=== PATIENT | female | born 1985 | race Caucasian/White ===

== ENCOUNTER 2016-10-30 11:24 | Emergency (ER) | payer OTHER ==
[2016-10-30 11:32] VITALS: BP 102/59; PULSE 102; TEMP 98.1; BMI 24.5
--- NOTE | 2016-10-30 12:29 | PDOC ---
History of Present Illness - General Chief Complaint: Sore Throat Stated Complaint: SORE THROAT Time Seen by Provider: 10/30/16 12:24 History Source: Patient Exam Limitations: No Limitations - History of Present Illness Initial Comments: 10/30/16 12:25 Patient is here with complaints of sore throat pain, fevers, general body aches. States onset was yesterday and has been intermittent. States all of family has been diagnosed with strep throat that was negative on rapid strep but was called a few days later to be tell the culture was positive for strep. Is concerned may have same. 10/30/16 12:26 Timing/Duration: reports: changing over time, getting worse Severity: reports: mild, moderate Associated Symptoms: reports: denies symptoms, chest pain/soreness, cough, dizziness, fever/chills, nasal congestion, sore throat. denies: wheezing Past History - Travel Traveled outside of the country in the last 30 days: No Close contact w/someone who was outside of country & ill: No - Past Medical History Allergies/Adverse Reactions: Allergies Allergy/AdvReac Type Severity Reaction Status Date / Time Penicillins Allergy Mild Hives Verified 10/30/16 11:29 Home Medications: Ambulatory Orders Azithromycin [Zithromax -] 250 mg PO UTDICT #6 tab 10/30/16 Other medical history: DENIES. - Psycho/Social/Smoking Cessation Hx Anxiety: No Suicidal Ideation: No Smoking History: Current every day smoker Number of Cigarettes Smoked Daily: 10 Information on smoking cessation initiated: No Hx Alcohol Use: No Drug/Substance Use Hx: No Substance Use Type: None Respiratory Specific PMHX - Complaint Specific PMHX Bronchitis: No Pneumonia: No Review of Systems - Review of Systems Able to Perform ROS?: Yes Is the patient limited [place] Citizen proficient: Yes Constitutional: Yes: Symptoms Reported, See HPI, Fever, Malaise HEENTM: Yes: See HPI. No: Symptoms Reported Respiratory: Yes: Symptoms reported, See HPI, Cough ABD/GI: No: Symptoms Reported : No: Symptoms Reported Musculoskeletal: Yes: Symptoms Reported, See HPI Integumentary: Yes: Symptoms Reported, See HPI Neurological: Yes: Symptoms reported All Other Systems: Reviewed and Negative *Physical Exam - Vital Signs Last Vital Signs Temp Pulse Resp BP Pulse Ox 98.1 F 102 H 18 102/59 99 10/30/16 11:29 10/30/16 11:29 10/30/16 11:29 10/30/16 11:29 10/30/16 11:29 - Physical Exam General Appearance: Yes: Nourished, Appropriately Dressed, Apparent Distress HEENT: positive: GRACIELA, TMs Normal, Pharynx Normal Neck: positive: Supple, Lymphadenopathy (R), Lymphadenopathy (L) Respiratory/Chest: positive: Lungs Clear, Normal Breath Sounds. negative: Wheezing Gastrointestinal/Abdominal: positive: Normal Bowel Sounds, Soft Musculoskeletal: positive: Normal Inspection Extremity: positive: Normal Capillary Refill, Normal Inspection Integumentary: positive: Dry, Warm, Pale Neurologic: positive: insole rounder II-XII NML intact, Fully Oriented, Alert, Normal Mood/ Affect, Normal Response, Motor Strength 02/11 Progress Note - Progress Note Progress Note: Microbiology reports negative influenza testing, positive strep throat group a. Will treat with Zithromax as patient has penicillin ALLERGY *DC/Admit/Observation/Transfer Diagnosis at time of Disposition: Strep pharyngitis - Discharge Dispostion Disposition: HOME Condition at time of disposition: Stable Admit: No - Prescriptions Prescriptions: Azithromycin [Zithromax -] 250 mg PO UTDICT #6 tab - Patient Instructions Printed Discharge Instructions: DI for Strep Throat Additional Instructions: Rest, drink lots of fluids: Teas, water, soups Eat cold things: Ice cream, ice pops, ice chips Saltwater gargles Steamy showers/seem to face break up mucus Avoid contact with others until fevers and pain resolved Lots of handwashing and good hygiene, this is contagious Tylenol or Motrin for fever and pain Zithromax as directed Followup with private physician in one to 2 days as needed if not improving Return to emergency department for worsened symptoms, fevers, dehydration - Post Discharge Activity Work/School Note: Back to Work
== END 2016-10-30 12:57 | disposition home or self-care (01) ==
LOC: JERFT 11:24
DX: J02.0 Streptococcal pharyngitis (principal); B95.0 Streptococcus, group A, as the cause of diseases classified elsewhere; F17.210 Nicotine dependence, cigarettes, uncomplicated
CPT/HCPCS: 87070; 87430; 87804; 99281-25

== ENCOUNTER 2017-10-12 20:37 | Emergency (ER) | payer SELFPAY ==
[2017-10-12 20:54] VITALS: BP 125/72; PULSE 99; TEMP 99.6; BMI 23.4
--- NOTE | 2017-10-12 20:54 | PDOC ---
Rapid Medical Evaluation Time Seen by Provider: 10/12/17 20:48 Medical Evaluation: Allergies Allergy/AdvReac Type Severity Reaction Status Date / Time Penicillins Allergy Mild Hives Verified 10/30/16 11:29 I have performed a brief in-person evaluation of this patient. The patient presents with a chief complaint of: vomited once today, now with burning pain in upper abdomen and nausea. Pertinent physical exam findings: TTP of epigastric region. Otherwise patient appears well. I have ordered the following: hcg/UA, labs The patient will proceed to the ED for further evaluation.
[2017-10-12 21:10] LABS: BASO % 0.8 % (0-2.0); EOS % 0.3 % (0-4.5); HEMATOCRIT 41.9 % (32.4-45.2); HEMOGLOBIN 14.1 GM/dL (10.7-15.3); LYMPH % 6.2 % (8-40); MCH 29.6 pg (25.7-33.7); MCHC 33.8 g/dl (32.0-36.0); MEAN CELL VOLUME 87.7 fl (80-96); MEAN PLT VOLUME 9.2 fl (7.5-11.1); NEUT % 87.7 % (42.8-82.8); PLATELET COUNT 213 K/MM3 (134-434); RBC 4.77 M/mm3 (3.60-5.2); RDW 13.1 % (11.6-15.6); WHITE BLOOD COUNT 11.8 K/mm3 (4.0-10.0)
[2017-10-12 21:36] LABS: HCG,QUALITATIVE URINE NEGATIVE
[2017-10-12 21:37] LABS: URINE APPEARANCE CLOUDY; URINE BILIRUBIN NEGATIVE (NEGATIVE); URINE BLOOD NEGATIVE (NEGATIVE); URINE COLOR YELLOW; URINE GLUCOSE (UA) NEGATIVE (NEGATIVE); URINE KETONE TRACE (NEGATIVE); URINE NITRITE NEGATIVE (NEGATIVE); URINE PROTEIN NEGATIVE (NEGATIVE); URINE UROBILINOGEN NEGATIVE mg/dL (0.2-1.0)
[2017-10-12 21:38] LABS: URINE LEUK ESTERASE 2+ (NEGATIVE)
[2017-10-12 21:54] LABS: ALBUMIN 4.1 g/dl (3.4-5.0); ALK PHOS 78 U/L (45-117); ANION GAP 7 (8-16); BILIRUBIN,TOTAL 0.7 mg/dL (0.2-1.0); BLOOD UREA NITROGEN 17 mg/dL (7-18); CALCIUM 8.9 mg/dL (8.5-10.1); CHLORIDE 103 mmol/L (98-107); CO2 28 mmol/L (21-32); CREATININE 0.6 mg/dL (0.55-1.02); GLUCOSE,RANDOM 94 mg/dL (74-106); LIPASE 111 U/L (73-393); POTASSIUM 3.8 mmol/L (3.5-5.1); SGOT/AST 14 U/L (15-37); SGPT/ALT 28 U/L (12-78); SODIUM 138 mmol/L (136-145); TOT PROT 7.4 g/dl (6.4-8.2)
[2017-10-12 22:15] LABS: EPI CELLS MANY /HPF (FEW); URINE BACTERIA RARE /hpf (NONE SEEN); URINE MUCUS RARE
[2017-10-12] MEDS ORDERED: ONDANSETRON *ODT* 4 MG TABLET SL ONE (22:32)
[2017-10-12] MEDS ORDERED: RANITIDINE HCL 150 MG/10 ML UNIT-DOSE PO ONE (22:32)
[2017-10-12] MEDS ORDERED: MAG HYDROX/AL HYDROX/SIMETH 30 ML UNIT-DOSE CUP PO ONE (22:32)
[2017-10-12] MEDS ORDERED: LIDOCAINE VISCOUS 2% ORAL/TOP 100 ML BOTTLE MM ONE (22:32)
--- NOTE | 2017-10-12 22:32 | PDOC ---
History of Present Illness - General Chief Complaint: Nausea Stated Complaint: COUGHING Time Seen by Provider: 10/12/17 20:48 History Source: Patient Exam Limitations: No Limitations - History of Present Illness Initial Comments: 10/12/17 22:24 This is a 32-year-old female without significant past medical history of presents to the emergency department today status post 3 episodes of vomiting. One of the episode of vomiting was posttussive. Patient reports diffuse upper abdominal cramping that started today upon waking. Patient states "I think I have a stomach virus" and then states that "it doesn't feel like one." Patient states she's been feeling very tired and unable to tolerate any by mouth's during the day today. Patient continues to feel nauseous. Patient states she has not had a bowel movement 2 days. Past History - Past Medical History Allergies/Adverse Reactions: Allergies Allergy/AdvReac Type Severity Reaction Status Date / Time Penicillins Allergy Mild Hives Verified 10/30/16 11:29 Home Medications: Ambulatory Orders NK [No Known Home Medication] 10/12/17 - Suicide/Smoking/Psychosocial Hx Smoking History: Current every day smoker Have you smoked in the past 12 months: Yes Number of Cigarettes Smoked Daily: 20 Information on smoking cessation initiated: Yes Hx Alcohol Use: No Drug/Substance Use Hx: No Substance Use Type: None Review of Systems - Review of Systems Able to Perform ROS?: Yes Is the patient limited [place] proficient: No Constitutional: No: Symptoms Reported HEENTM: No: Symptoms Reported Respiratory: Yes: See HPI Cardiac (ROS): No: Symptoms Reported ABD/GI: Yes: See HPI : No: Symptoms Reported Musculoskeletal: No: Symptoms Reported Integumentary: No: Symptoms Reported Neurological: No: Symptoms reported Endocrine: No: Symptoms Reported Hematologic/Lymphatic: No: Symptoms Reported *Physical Exam - Vital Signs Last Vital Signs Temp Pulse Resp BP Pulse Ox 99.6 F 99 H 20 125/72 100 10/12/17 20:51 10/12/17 20:51 10/12/17 20:51 10/12/17 20:51 10/12/17 20:51 - Physical Exam General Appearance: Yes: Appropriately Dressed. No: Apparent Distress HEENT: positive: Pharynx Normal Neck: positive: Trachea midline, Supple Respiratory/Chest: positive: Lungs Clear, Normal Breath Sounds. negative: Respiratory Distress, Accessory Muscle Use Cardiovascular: positive: Regular Rhythm, Regular Rate. negative: Murmur Gastrointestinal/Abdominal: positive: Normal Bowel Sounds, Soft. negative: Tender Musculoskeletal: positive: Normal Inspection. negative: CVA Tenderness Extremity: positive: Normal Capillary Refill, Normal Inspection Integumentary: positive: Normal Color, Dry, Warm Neurologic: positive: Fully Oriented, Alert, Normal Mood/Affect, Normal Response , Motor Strength 02/11 ED Treatment Course - LABORATORY CBC & Chemistry Diagram: 10/12/17 20:59 10/12/17 20:59 - ADDITIONAL ORDERS Additional order review: Laboratory Results 10/12/17 10/12/17 21:02 20:59 Sodium 138 Potassium 3.8 Chloride 103 Carbon Dioxide 28 Anion Gap 7 L BUN 17 Creatinine 0.6 Creat Clearance w eGFR > 60 Random Glucose 94 Calcium 8.9 Total Bilirubin 0.7 AST 14 L ALT 28 Alkaline Phosphatase 78 Total Protein 7.4 Albumin 4.1 Lipase 111 Urine Color Yellow Urine Appearance Cloudy Urine pH 7.0 Ur Specific [place] 1.027 Urine Protein Negative Urine Glucose (UA) Negative Urine Ketones Trace H Urine Blood Negative Urine Nitrite Negative Urine Bilirubin Negative Urine Urobilinogen Negative Urine WBC (Auto) 6 Urine RBC (Auto) 8 Ur Epithelial Cells Many Urine Bacteria Rare Urine Mucus Rare Urine HCG, Qual Negative 10/12/17 20:59 RBC 4.77 MCV 87.7 MCHC 33.8 RDW 13.1 MPV 9.2 Neutrophils % 87.7 H Lymphocytes % 6.2 L Monocytes % 5.0 Eosinophils % 0.3 Basophils % 0.8 Medical Decision Making - Medical Decision Making 10/12/17 22:26 A/P: This is a 32-year-old female without significant past medical history of presents to the emergency department today status post 3 episodes of vomiting. One of the episode of vomiting was posttussive. Patient reports diffuse upper abdominal cramping that started today upon waking. Patient states "I think I have a stomach virus" and then states that "it doesn't feel like one." Patient states she's been feeling very tired and unable to tolerate any by mouth's during the day today. Patient continues to feel nauseous. Patient states she has not had a bowel movement 2 days. Lungs clear to auscultation bilaterally. S1 and S2 present no murmur, rub or gallop noted. Abdomen soft nontender nondistended. Normoactive bowel sounds. Diagnosis: Viral gastroenteritis Labs collected in [facility] unremarkable. Subtly elevated white count likely reactive. I'll treat the patient with 30 mL of Maalox, 15 mL of viscous lidocaine, and 50 mg of Zantac, and 4 mg of Zofran ODT. I will reassess patient after all medications have been given. 10/12/17 22:53 Patient states she feels better after being medicated. Still remains slightly nauseous. I will prescribe patient Zofran ODT to be taken every 6 hours as needed for nausea. Patient is agreement with plan. *DC/Admit/Observation/Transfer Diagnosis at time of Disposition: Gastroenteritis - Discharge Dispostion Disposition: HOME Condition at time of disposition: Stable Admit: No - Referrals Referrals: Frantz Woodard MD [Primary Care Provider] - - Patient Instructions Additional Instructions: Take Zofran every 6 hours as needed for nausea. Keep well-hydrated. Eat a bland diet. Start with bananas, rice, applesauce or toast and slowly aerated foods as your able without vomiting. Return to emergency department for worsening fevers, worsening abdominal pain, severe vomiting, severe diarrhea or any other concerns. Thank you very much for choosing us to provide your emergent healthcare needs. - Post Discharge Activity
[2017-10-12] MEDS ORDERED: RANITIDINE HCL 150 MG TABLET (FP) ONE (22:35)
[2017-10-12] MEDS ORDERED: ONDANSETRON *ODT* 4 MG TABLET ONE (22:35)
[2017-10-12] MEDS ORDERED: MAG HYDROX/AL HYDROX/SIMETH 30 ML UNIT-DOSE CUP ONE (22:35)
== END 2017-10-12 22:54 | disposition home or self-care (01) ==
LOC: JERFT 20:37
DX: K52.9 Noninfective gastroenteritis and colitis, unspecified (principal); F17.210 Nicotine dependence, cigarettes, uncomplicated
CPT/HCPCS: 36415; 80053; 81003; 81015; 83690; 84703; 85025; 99281-25

== ENCOUNTER 2018-09-01 19:13 | Emergency (ER) | payer OTHER ==
--- NOTE | 2018-09-01 19:27 | PDOC ---
Rapid Medical Evaluation Time Seen by Provider: 09/01/18 19:20 Medical Evaluation: Allergies Allergy/AdvReac Type Severity Reaction Status Date / Time Penicillins Allergy Mild Hives Verified 10/30/16 11:29 09/01/18 19:22 I have performed a brief in person evaluation of this patient. The patient presents with a chief complaints of: "I'm bleeding down there" since ~0930 am today. +URINARY FREQUENCY,URGENCY,DYSURIA " it feels like something is stuck and after I pee, it feels like something is stuck and it hurts really bad. I see a little clot after I wiped, I see some discharge" " I have 4 babies and I have never gotten a period with them" Neg f/c, flank pain LMP: 08/22 Pertinent physical exam findings:+bladder pressure, neg flank pain on percussion I have ordered the following: cbc/chem/beta/ua/uc The patient will proceed to the ED for further evaluation. DID NOT ORDER TS AND US. I'm waiting to see if the beta is +, if so, then TS and US transvag
[2018-09-01 19:30] VITALS: BMI 24.4
[2018-09-01 19:45] LABS: BASO % 1.1 % (0-2.0); HEMATOCRIT 39.8 % (32.4-45.2); HEMOGLOBIN 14.1 GM/dL (10.7-15.3); LYMPH % 23.4 % (8-40); MCH 31.7 pg (25.7-33.7); MCHC 35.4 g/dl (32.0-36.0); MEAN CELL VOLUME 89.8 fl (80-96); MEAN PLT VOLUME 9.3 fl (7.5-11.1); MONO % 7.2 % (3.8-10.2); NEUT % 67.3 % (42.8-82.8); PLATELET COUNT 283 K/MM3 (134-434); RBC 4.43 M/mm3 (3.60-5.2); RDW 13.5 % (11.6-15.6); WHITE BLOOD COUNT 13.8 K/mm3 (4.0-10.0)
[2018-09-01 20:25] LABS: ALBUMIN 4.5 g/dl (3.4-5.0); ALK PHOS 119 U/L (45-117); ANION GAP 9 MMOL/L (8-16); BILIRUBIN,TOTAL 0.5 mg/dL (0.2-1); BLOOD UREA NITROGEN 19 mg/dL (7-18); CALCIUM 8.8 mg/dL (8.5-10.1); CHLORIDE 103 mmol/L (98-107); CO2 26 mmol/L (21-32); CREATININE 0.8 mg/dL (0.55-1.3); GLUCOSE,RANDOM 87 mg/dL (74-106); SGOT/AST 30 U/L (15-37); SGPT/ALT 32 U/L (13-61); SODIUM 139 mmol/L (136-145); TOT PROT 7.7 g/dl (6.4-8.2)
[2018-09-01 20:38] LABS: URINE APPEARANCE CLOUDY; URINE BILIRUBIN NEGATIVE (<2.0 mg/dL); URINE COLOR YELLOW; URINE GLUCOSE (UA) NEGATIVE (NEGATIVE); URINE KETONE NEGATIVE (NEGATIVE); URINE LEUK ESTERASE 1+ (NEGATIVE); URINE NITRITE NEGATIVE (NEGATIVE); URINE PROTEIN 2+ (NEGATIVE); URINE UROBILINOGEN NEGATIVE mg/dL (0.2-1.0)
--- NOTE | 2018-09-01 20:49 | PDOC ---
Attending Attestation - Resident Resident Name: Zain Galloway - ED Attending Attestation I have performed the following: I have examined & evaluated the patient, The case was reviewed & discussed with the resident, I agree w/resident's findings & plan, Exceptions are as noted - Medical Decision Making 09/01/18 20:49 I, Dr. Maggie Sears, DO, attest that this document has been prepared under my direction and personally reviewed by me in its entirety. I further attest, that it accurately reflects all work, treatment, procedures and medical decision -making performed by me. 09/01/18 21:56 a/p: 32yo female with urinary freq, urgency, and blood -pt with symptoms today -no f/c -no abd pain, no flank pain, no f/c -will send ua, labs, pelvic exam 09/01/18 21:56 discharge on pelvic exam - will send culture +ua will need abx 09/01/18 21:57 will give [facility] for follow up cultures pending <Maggie Sears - Last Filed: 09/01/18 21:56> - HPI HPI: 09/01/18 22:58 The patient is a 32 year old female, with a significant past medical history of , who presents to the emergency department with, vaginal bleeding, dysuria, hematuria, and urinary frequency. She denies recent abdominal pain, nausea, or vomiting. Allergies: Penicillins. - Physicial Exam PE: 09/01/18 22:58 Constitutional: Awake, alert, oriented. No acute distress. Head: Normocephalic. Atraumatic Eyes: PERRL. EOMI. Conjunctivae are not pale. ENT: Mucous membranes are moist and intact. Posterior pharynx without exudates or erythema. Uvula midline. Neck: Supple. Full ROM. No lymphadenopathy. Cardiovascular: Regular rate. Regular rhythm. S1, S2 regular. Distal pulses are 2+ and symmetric. Pulmonary/Chest: No evidence of respiratory distress. Clear to auscultation bilaterally No wheezing, rales or rhonchi. Abdominal: Soft and non-distended. There is no tenderness. No rebound, guarding or rigidity. No organomegaly. No palpable masses. Good bowel sounds. Back: No CVA tenderness. Musculoskeletal: No edema. No cyanosis. No clubbing. Full range of motion in all extremities. No calf tenderness. Radial/pedal pulses are intact and 2+ bilaterally Skin: Skin is warm and dry. No petechiae. No purpura. Neurological: Alert and oriented to person, place, and time. Cranial nerves II -XII are grossly intact. Normal speech. Strength is grossly symmetric. No sensory deficits. Psychiatric: Good eye contact. Normal interaction, affect and behavior. <Vee Tang - Last Filed: 09/01/18 22:59> Attestations - Attestations 09/01/18 22:59 Documentation prepared by Vee Tang, acting as medical equipment technician for Maggie Sears DO. <Vee Tang - Last Filed: 09/01/18 22:59>
[2018-09-01 20:58] LABS: EPI CELLS RARE /HPF (FEW); URINE BACTERIA FEW /hpf (NONE SEEN); URINE MUCUS RARE
[2018-09-01] MEDS ORDERED: levoFLOXacin 750 MG TABLET PO ONE (21:31)
--- NOTE | 2018-09-01 21:44 | PDOC ---
History of Present Illness <Maggie Sears - Last Filed: 09/01/18 21:57> - General History Source: Patient Exam Limitations: No Limitations - History of Present Illness Initial Comments: 09/01/18 21:44 32 yo F with no pmhx presenting to the ED with vaginal bleeding with associative dysuria, hematuria, and increased urinary frequency. <Zain Galloway - Last Filed: 09/04/18 14:06> - General Chief Complaint: Vaginal Bleeding Stated Complaint: EVALUATION Time Seen by Provider: 09/01/18 19:20 Past History <Maggie Sears - Last Filed: 09/01/18 21:57> - Past Medical History Asthma: No Cancer: No Cardiac Disorders: No CVA: No COPD: No CHF: No DVT: No Dementia: No Diabetes: No - Surgical History Cardiac Surgery: No Cholecystectomy: No Gastric Stapling: No - Suicide/Smoking/Psychosocial Hx Smoking History: Current every day smoker Have you smoked in the past 12 months: Yes Number of Cigarettes Smoked Daily: 20 Information on smoking cessation initiated: Yes 'Breaking Loose' booklet given: 09/01/18 Hx Alcohol Use: Yes Drug/Substance Use Hx: No Substance Use Type: Alcohol <Zain Galloway - Last Filed: 09/04/18 14:06> - Past Medical History Allergies/Adverse Reactions: Allergies Allergy/AdvReac Type Severity Reaction Status Date / Time Penicillins Allergy Mild Hives Verified 09/01/18 22:09 Home Medications: Ambulatory Orders NK [No Known Home Medication] 09/01/18 Review of Systems - Review of Systems Able to Perform ROS?: Yes Is the patient limited [place] proficient: No <Zain Galloway - Last Filed: 09/04/18 14:06> *Physical Exam - Vital Signs Last Vital Signs Temp Pulse Resp BP Pulse Ox 97.6 F 93 H 20 118/64 99 09/01/18 19:22 09/01/18 19:22 09/01/18 19:22 09/01/18 19:22 09/01/18 19:22 <Maggie Sears - Last Filed: 09/01/18 21:57> - Vital Signs Last Vital Signs Temp Pulse Resp BP Pulse Ox 97.6 F 93 H 20 118/64 99 09/01/18 19:22 09/01/18 19:22 09/01/18 19:22 09/01/18 19:22 09/01/18 19:22 - Physical Exam General Appearance: Yes: Nourished, Appropriately Dressed. No: Apparent Distress HEENT: positive: EOMI, GRACIELA, Normal Voice, Pharynx Normal, Hearing Grossly Normal. negative: Scleral Icterus (R), Scleral Icterus (L), Pharyngeal Erythema , Tonsillar Exudate, Tonsillar Erythema Neck: positive: Trachea midline. negative: Lymphadenopathy (R), Lymphadenopathy (L) Respiratory/Chest: positive: Lungs Clear, Normal Breath Sounds. negative: Chest Tender, Respiratory Distress, Accessory Muscle Use Cardiovascular: positive: Regular Rhythm, Regular Rate, S1, S2. negative: Systolic Murmur Female Pelvic Exam: positive: normal external exam, cervical os closed, CMT, discharge (purulent yellow/green). negative: adnexal tenderness Gastrointestinal/Abdominal: positive: Normal Bowel Sounds, Tender (suprapubic region), Flat, Soft. negative: Protuberent, Distended Lymphatic: negative: Adenopathy Musculoskeletal: positive: Normal Inspection. negative: CVA Tenderness Extremity: positive: Normal Capillary Refill, Normal Inspection, Normal Range of Motion. negative: Tender, Swelling, Calf Tenderness Integumentary: positive: Normal Color, Dry. negative: Rash, Swelling Neurologic: positive: engineering manager electronics II-XII NML intact, Fully Oriented, Alert, Normal Mood/ Affect, Normal Response, Motor Strength 5/5. negative: Sensory Deficit <Zain Galloway - Last Filed: 09/04/18 14:06> ED Treatment Course - LABORATORY CBC & Chemistry Diagram: 09/01/18 19:36 09/01/18 19:36 - ADDITIONAL ORDERS Additional order review: Laboratory Results 09/01/18 09/01/18 20:26 19:36 Sodium 139 Potassium 4.0 Chloride 103 Carbon Dioxide 26 Anion Gap 9 BUN 19 H Creatinine 0.8 Creat Clearance w eGFR > 60 Random Glucose 87 Calcium 8.8 Total Bilirubin 0.5 AST 30 ALT 32 Alkaline Phosphatase 119 H Total Protein 7.7 Albumin 4.5 Beta HCG, Quant < 1.0 Urine Color Yellow Urine Appearance Cloudy Urine pH 6.0 Ur Specific [place] 1.026 Urine Protein 2+ H Urine Glucose (UA) Negative Urine Ketones Negative Urine Blood 3+ H Urine Nitrite Negative Urine Bilirubin Negative Urine Urobilinogen Negative Ur Leukocyte Esterase 1+ H Urine WBC (Auto) 188 Urine RBC (Auto) 1419 Ur Epithelial Cells Rare Urine Bacteria Few Urine Mucus Rare 09/01/18 19:36 RBC 4.43 MCV 89.8 MCHC 35.4 RDW 13.5 MPV 9.3 Neutrophils % 67.3 D Lymphocytes % 23.4 D Monocytes % 7.2 Eosinophils % 1.0 D Basophils % 1.1 <Maggie Sears - Last Filed: 09/01/18 21:57> - LABORATORY CBC & Chemistry Diagram: 09/01/18 19:36 09/01/18 19:36 - ADDITIONAL ORDERS Additional order review: Laboratory Results 09/01/18 09/01/18 20:26 19:36 Sodium 139 Potassium 4.0 Chloride 103 Carbon Dioxide 26 Anion Gap 9 BUN 19 H Creatinine 0.8 Creat Clearance w eGFR > 60 Random Glucose 87 Calcium 8.8 Total Bilirubin 0.5 AST 30 ALT 32 Alkaline Phosphatase 119 H Total Protein 7.7 Albumin 4.5 Beta HCG, Quant < 1.0 Urine Color Yellow Urine Appearance Cloudy Urine pH 6.0 Ur Specific [place] 1.026 Urine Protein 2+ H Urine Glucose (UA) Negative Urine Ketones Negative Urine Blood 3+ H Urine Nitrite Negative Urine Bilirubin Negative Urine Urobilinogen Negative Ur Leukocyte Esterase 1+ H Urine WBC (Auto) 188 Urine RBC (Auto) 1419 Ur Epithelial Cells Rare Urine Bacteria Few Urine Mucus Rare 09/01/18 19:36 RBC 4.43 MCV 89.8 MCHC 35.4 RDW 13.5 MPV 9.3 Neutrophils % 67.3 D Lymphocytes % 23.4 D Monocytes % 7.2 Eosinophils % 1.0 D Basophils % 1.1 <Zain Galloway - Last Filed: 09/04/18 14:06> *DC/Admit/Observation/Transfer - Discharge Dispostion Decision to Admit order: No <Maggie Sears - Last Filed: 09/01/18 21:57> - Discharge Dispostion Decision to Admit order: No <Zian Galloway - Last Filed: 09/04/18 14:06> Diagnosis at time of Disposition: UTI (urinary tract infection) Qualifiers: Urinary tract infection type: site unspecified Hematuria presence: without hematuria Qualified Code(s): N39.0 - Urinary tract infection, site not specified - Discharge Dispostion Disposition: HOME Condition at time of disposition: Stable - Referrals Referrals: [facility] [Provider Group] Wilson Kim MD [Staff Physician] - - Patient Instructions Printed Discharge Instructions: DI for Urinary Tract Infection (UTI) Additional Instructions: You were seen in the emergency department for your vaginal bleeding and painful urinations. You were given an antibiotic in our emergency department (levaquin) and have been prescribed this to your pharmacy. Please take it as directed. We took cultures from the urine and cervix and the results will be relayed to you once the cultures result. Please return to the emergency department if you develop worsening symptoms or new concerning symptoms such as fevers/chills, SOB , chest pain, nausea/vomiting, and abdominal pain. Please follow up with your primary care medical doctor or the one we referred you to in your packet within 48-72 hours after discharge. Thank you
[2018-09-01 22:14] VITALS: BP 110/70; PULSE 88; TEMP 97.8
== END 2018-09-01 22:23 | disposition home or self-care (01) ==
LOC: JER 19:13
DX: N39.0 Urinary tract infection, site not specified (principal); N93.9 Abnormal uterine and vaginal bleeding, unspecified
CPT/HCPCS: 36415; 80053; 81003; 81015; 84702; 85025; 87081; 87086; 87186; 99282-25

== ENCOUNTER 2021-05-08 06:02 | Emergency (ER) | payer OTHER ==
[2021-05-08 06:30] VITALS: BMI 33.2
[2021-05-08] MEDS ORDERED: SODIUM CHLORIDE 1,000 ML IV STA (07:35)
[2021-05-08] MEDS ORDERED: ACETAMINOPHEN 1000 MG/100 ML VIAL IVPB ONE (07:35)
[2021-05-08] MEDS ORDERED: ACETAMINOPHEN INJECTION 100 ML IVPB ONE (07:43)
[2021-05-08 08:47] LABS: BASO % 1.1 % (0-2.0); EOS % 0.3 % (0-4.5); HEMATOCRIT 39.8 % (32.4-45.2); HEMOGLOBIN 13.7 GM/dL (10.7-15.3); LYMPH % 34.5 % (8-40); MCH 30.6 pg (25.7-33.7); MCHC 34.4 g/dl (32.0-36.0); MEAN CELL VOLUME 88.8 fl (80-96); MEAN PLT VOLUME 9.3 fl (7.5-11.1); MONO % 6.5 % (3.8-10.2); NEUT % 57.6 % (42.8-82.8); PLATELET COUNT 305 10^3/uL (134-434); RBC 4.49 M/mm3 (3.60-5.2); RDW 13.3 % (11.6-15.6); WHITE BLOOD COUNT 10.1 K/mm3 (4.0-10.0)
[2021-05-08] MEDS ORDERED: METOCLOPRAMIDE HCL INJECTION 10 MG/2 ML VIAL IVPB ONE (08:55)
[2021-05-08] MEDS ORDERED: METOCLOPRAMIDE HCL INJECTION 10 MG/2 ML VIAL ONE (09:05)
[2021-05-08 09:13] LABS: ALBUMIN 4.4 g/dl (3.4-5.0); BLOOD UREA NITROGEN 8.1 mg/dL (7-18); CALCIUM 8.9 mg/dL (8.5-10.1)
[2021-05-08 09:17] LABS: CREATININE 0.5 mg/dL (0.55-1.3)
[2021-05-08 09:18] LABS: BILIRUBIN,TOTAL 0.3 mg/dL (0.2-1)
[2021-05-08 10:38] VITALS: BP 112/57; PULSE 73; TEMP 97.2
== END 2021-05-08 10:38 | disposition home or self-care (01) ==
LOC: JER 06:02
PROC: 3E0333Z Introduction of Anti-inflammatory into Peripheral Vein, Percutaneous Approach (ICD-10-PCS; principal; 2021-05-08)
PROC: 3E033GC Introduction of Other Therapeutic Substance into Peripheral Vein, Percutaneous Approach (ICD-10-PCS; 2021-05-08)
PROC: 3E0337Z Introduction of Electrolytic and Water Balance Substance into Peripheral Vein, Percutaneous Approach (ICD-10-PCS; 2021-05-08)
DX: R50.9 Fever, unspecified (principal); R51.9 Headache, unspecified; R05 Cough
CPT/HCPCS: 36415; 71046-TC-FY; 80053; 85025; 96374; 96375; 99284-25; C9803; J0131; U0003; U0005

== ENCOUNTER 2023-02-26 10:37 | Emergency (ER) | payer OTHER ==
[2023-02-26 10:46] VITALS: BP 104/67; PULSE 81; RESP 18; TEMP 97.7; BMI 27.3
[2023-02-26] MEDS ORDERED: ACETAMINOPHEN 325 MG TABLET (FP) ONE (14:37)
[2023-02-26] MEDS ORDERED: ACETAMINOPHEN 325 MG TABLET (FP) PO ONE (14:39)
[2023-02-26] MEDS ORDERED: SODIUM CHLORIDE 0.9% 1000 ML INFUS.BAG IV ONE (14:40)
[2023-02-26 15:16] LABS: ALBUMIN 4.2 g/dl (3.4-5.0); BILIRUBIN,TOTAL 0.6 mg/dl (0.2-1); CREATININE 0.6 mg/dl (0.55-1.3); MAGNESIUM 2.1 mg/dL (1.8-2.4); TOT PROT 7.2 g/dl (6.4-8.2)
== END 2023-02-26 16:21 | disposition home or self-care (01) ==
LOC: FER 10:37
DX: F10.920 Alcohol use, unspecified with intoxication, uncomplicated (principal); Y90.9 Presence of alcohol in blood, level not specified
CPT/HCPCS: 36415; 80053; 83735; 99284-25

== ENCOUNTER 2023-03-06 05:25 | Emergency (ER) | payer OTHER ==
[2023-03-06 05:38] VITALS: TEMP 97.9; BMI 27.3
[2023-03-06] MEDS ORDERED: ACETAMINOPHEN 650 MG/20.3 ML ORAL SOLUTION (CUPS) PO ONE (08:28)
[2023-03-06] MEDS ORDERED: ACETAMINOPHEN 160 MG/5 ML 473ML BULK BOTTLE ONE (08:34)
[2023-03-06 08:37] VITALS: BP 121/69; PULSE 87; RESP 16
== END 2023-03-06 08:42 ==
LOC: FER 05:25
DX: F10.920 Alcohol use, unspecified with intoxication, uncomplicated (principal)
CPT/HCPCS: 99283-25

== ENCOUNTER 2025-06-14 22:32 | Emergency (ER) | payer OTHER ==
[2025-06-14 22:39] VITALS: BP 110/69; PULSE 67; RESP 20; TEMP 98.4; BMI 28.3
[2025-06-14] MEDS ORDERED: MAG HYDROX/AL HYDROX/SIMETH 30 ML UNIT-DOSE CUP ONE (23:08)
[2025-06-14] MEDS ORDERED: ACETAMINOPHEN INJECTION 100 ML ONE (23:08)
[2025-06-14] MEDS ORDERED: FAMOTIDINE 20 MG/50 ML IVPB 20 MG/50 ML MG IVPB ONE (23:08)
[2025-06-14] MEDS: FAMOTIDINE 20 MG/50 ML IVPB 20 MG/50 ML MG IVPB ONE (23:45)
[2025-06-14] MEDS: LACTATED RINGERS SOLUTION 1000 ML INFUS.BAG IV ONE (23:45)
[2025-06-14] MEDS: MAG HYDROX/AL HYDROX/SIMETH -MYLANTA- ORAL SUSPENSION PO ONE (23:45)
[2025-06-14] MEDS: ACETAMINOPHEN 1000 MG/100 ML BAG IVPB ONE (23:45)
[2025-06-14 23:54] LABS: MCHC 33.6 g/dl (32.2-35.5); MEAN CELL VOLUME 88.9 fl (79.4-94.8); MEAN PLT VOLUME 11.4 fl (9.4-12.3); RDW 12.5 % (12.1-16.8)
[2025-06-15 00:01] LABS: EPI CELLS 19 /uL (0-25.1); HYALINE CASTS 0 /uL (0-3.1); URINE APPEARANCE CLEAR; URINE BACTERIA 1080 /uL (0-1359); URINE BILIRUBIN NEGATIVE (NEGATIVE); URINE COLOR YELLOW; URINE GLUCOSE (UA) NEGATIVE (NEGATIVE); URINE KETONE NEGATIVE (NEGATIVE); URINE LEUK ESTERASE 2+ (NEGATIVE); URINE NITRITE NEGATIVE (NEGATIVE); URINE PROTEIN NEGATIVE (NEGATIVE); URINE UROBILINOGEN 0.2 mg/dL (0.2-1.0); URINE WBC 17 /uL (0-25.8)
[2025-06-15 00:10] LABS: URINE RBC 49.8 /uL (0-23.9)
[2025-06-15 00:11] LABS: YEAST NONE SEEN (NEGATIVE)
[2025-06-15 00:16] LABS: GLUCOSE,RANDOM 86.0 mg/dL (74-106); TOT PROT 7.4 g/dl (6.4-8.2)
[2025-06-15 00:17] LABS: CO2 26.0 mmol/L (21-32)
[2025-06-15 00:19] LABS: ALK PHOS 64.0 U/L (40-150)
[2025-06-15 00:21] LABS: SGOT/AST 26.0 U/L (5-34); SGPT/ALT 23.0 U/L (0-55)
[2025-06-15 00:22] LABS: CREATININE 0.83 mg/dL (0.55-1.3)
[2025-06-15] MEDS: CEFPODOXIME PROXETIL 100 MG TABLET PO ONE (02:01)
== END 2025-06-15 02:17 | disposition home or self-care (01) ==
LOC: JER 22:32
PROC: 3E033GC Introduction of Other Therapeutic Substance into Peripheral Vein, Percutaneous Approach (ICD-10-PCS; principal; 2025-06-14)
PROC: 3E033NZ Introduction of Analgesics, Hypnotics, Sedatives into Peripheral Vein, Percutaneous Approach (ICD-10-PCS; 2025-06-14)
DX: R00.2 Palpitations (principal); R07.89 Other chest pain; M54.2 Cervicalgia; M79.602 Pain in left arm
CPT/HCPCS: 36415; 80053; 81003; 83690; 83735; 84484; 84703; 85025; 87086; 93005; 93010; 99284-25